=== PATIENT | female | born 1950 | race American Indian/Alaskan Native ===

== ENCOUNTER 2018-03-09 09:24 | Outpatient (CLI) | payer MEDICARE ==
--- NOTE | 2018-03-09 13:50 | Mammography Report ---
BILATERAL MAMMOGRAM: FINDINGS: There are scattered fibroglandular densities (approximately 25%-50% glandular). No mass, distortion, suspicious calcification, or skin change is seen. No significant change when compared to prior exam in September 2016. CAD was utilized. IMPRESSION: Negative mammogram. There is no mammographic evidence of malignancy. RECOMMENDATION: Follow-up per ACS guidelines. BI-RADS CATEGORY: 1 = Negative ACR BI-RADS MAMMOGRAPHIC CODES: 0 = Needs additional imaging evaluation; 1 = Negative; 2 = Benign; 3 = Probably benign; 4 = Suspicious; 5 = Malignant; 6 = Known biopsy-proven malignancy COMMENT: 1. Dense breast tissue, i.e., adenosis, fibrocystic changes, etc., may obscure an underlying neoplasm. 2. Approximately 10% of cancers are not detected with mammography. 3. A negative mammography report should not delay biopsy if a clinically suspicious mass is present. COMMENT: Patient follow-up letters are generated in [employer].
== END 2018-03-09 09:25 | disposition home or self-care (01) ==
LOC: SPVWC 09:24
PROVIDERS: ATTEND Family Medicine
DX: Z12.31 Encounter for screening mammogram for malignant neoplasm of breast (principal)
CPT/HCPCS: 77067

== ENCOUNTER 2022-03-24 10:54 | Outpatient (CLI) | payer MEDICARE ==
--- NOTE | 2022-03-24 12:40 | Ultrasound Report ---
US unlisted procedure (back) INDICATION / CLINICAL INFORMATION: LOCALIZED SWELLING, MASS AMD LUMP. COMPARISON: None available. TECHNIQUE: Limited grayscale and color doppler imaging of the left lateral back area of concern. FINDINGS: There is a complex hyperechoic subcutaneous soft tissue nodule measuring 4.3 x 0.9 x 0.9 cm. Minimal peripheral vascularity is noted. IMPRESSION: 1. Complex hyperechoic soft tissue nodule in the left lateral back area of concern measuring 4.3 cm. The etiology of this mass is unclear as there appears to be no significant internal Doppler flow. Pos sibilities include hematoma versus nonspecific mass. Recommend repeat ultrasound in 3 months if mass persists. Scribed by: Mariela Mcdonald RDMS, DEBBYT, MARIEL Scribed: 03/24/2022 11:33 AM I have reviewed the images, agree with this report, and edited this report as needed. Signer Name: Hank Amin MD Signed: 03/24/2022 12:36 PM Workstation Name: [id number]
== END 2022-03-24 10:55 | disposition home or self-care (01) ==
LOC: US 10:54
PROVIDERS: ATTEND Family Medicine
DX: R22.2 Localized swelling, mass and lump, trunk (principal)
CPT/HCPCS: 76999

== ENCOUNTER 2022-04-19 10:18 | Outpatient (CLI) | payer MEDICARE ==
--- NOTE | 2022-04-20 17:35 | Mammography Report ---
DIGITAL SCREENING MAMMOGRAM WITH CAD, 04/19/2022 CLINICAL INFORMATION / INDICATION: Routine screening mammography. SCREENING MAMMO TECHNIQUE: Digital bilateral 2D mammography was obtained in the craniocaudal and mediolateral obliqu e projections. This examination was interpreted with the benefit of Computer-Aided Detection analysis . COMPARISON: Prior mammogram 07/22/2020 and 03/09/2018 FINDINGS: Breast Density: There are scattered areas of fibroglandular density. No dominant mass, suspicious calcifications, or architectural distortion in either breast. There is been no significant change compared with the prior examinations. IMPRESSION: No mammographic evidence of malignancy. Follow up recommendation: Routine yearly screening mammogram. BI-RADS Category 1: NEGATIVE A "normal" or negative report should not discourage follow up or biopsy of a clinically significant f inding. A written summary of these findings will be mailed to the patient. The patient will be entered into a mammography reporting system which will generate a reminder letter for the patient's next appointmen t at the appropriate interval. The [employer] recommends yearly mammograms starting at age 40 and continuing as l tanmay as a woman is in good health. Breast MRI is recommended for women with an approximate 20-25% or greater lifetime risk of breast cancer, including women with a strong family history of breast or ova vinnie cancer or who have been treated for Hodgkin's disease. Signer Name: Shona Ray MD Signed: 04/20/2022 5:30 PM Workstation Name: [id number]
== END 2022-04-19 10:19 | disposition home or self-care (01) ==
LOC: SPVWC 10:18
PROVIDERS: ATTEND Family Medicine
DX: Z12.31 Encounter for screening mammogram for malignant neoplasm of breast (principal)
CPT/HCPCS: 77067